=== PATIENT | female | born 1955 | race Caucasian/White ===

== ENCOUNTER 2018-10-25 08:02 | Emergency (ER) | payer OTHER ==
[~2018-10-25] VITALS: Ht 188 cm; Wt 68.0 kg
[2018-10-25] MEDS ORDERED: NORFLEX (08:19)
[2018-10-25] MEDS ORDERED: RELAFEN (08:19)
[2018-10-25] MEDS ORDERED: RELA (08:19)
== END 2018-10-25 08:39 | disposition home or self-care (01) ==
LOC: ER 08:02
DX: M54.31 Sciatica, right side (principal)